=== PATIENT | female | born 1970 | race Caucasian/White ===

== ENCOUNTER 2018-11-05 17:46 | Emergency (ER) | payer SELFPAY ==
[~2018-11-05] VITALS: Ht 157.5 cm; Wt 64.1 kg
[2018-11-05 18:01] VITALS: BP 139/102; Ht 157.5 cm; Wt 64.1 kg
== END 2018-11-05 19:17 | disposition home or self-care (01) ==
LOC: ED 17:46
DX: H11.32 Conjunctival hemorrhage, left eye (principal); R03.0 Elevated blood-pressure reading, without diagnosis of hypertension